=== PATIENT | female | born 1970 | race Caucasian/White ===

== ENCOUNTER 2018-08-03 23:00 | Emergency (ER) | payer OTHER ==
[2018-08-03 23:05] VITALS: BMI 35.9
--- NOTE | 2018-08-03 23:23 | PDOC ---
Attending Attestation - HPI HPI: 08/03/18 23:27 The patient is a 48 year old female with no past medical history who presents to the emergency department for evaluation of left ankle pain s/p mechanical fall. The patient reports moderate left ankle pain after tripping and falling while going down stairs in her home in the dark. Denies LOC or head strike. She states she heard a crack and ripping which prompted her to visit the ED for further evaluation. Denies chest pain, shortness of breath, headache, and dizziness. - Physicial Exam PE: I agree with the residents physical exam findings. - Medical Decision Making Documentation prepared by Rasta Velasquez, acting as certified medical assistant for Kika Jose DO. <Rasta Velasquez - Last Filed: 08/03/18 23:28> - Resident Resident Name: Osvaldo Leigh - ED Attending Attestation I have performed the following: I have examined & evaluated the patient, The case was reviewed & discussed with the resident, I agree w/resident's findings & plan - Medical Decision Making 08/03/18 23:57 48-year-old female with left lateral ankle pain after a fall X-rays show no obvious fracture Due to patient's inability to bear full weight she will be discharged with crutches and Aircast with outpatient orthopedic follow-up Patient neurovascularly intact <Kika Jose - Last Filed: 08/03/18 23:58>
--- NOTE | 2018-08-03 23:26 | PDOC ---
History of Present Illness - General Chief Complaint: Injury Stated Complaint: L ANKLE SPRAIN Time Seen by Provider: 08/03/18 23:20 - History of Present Illness Initial Comments: 08/03/18 23:26 Ms. Cross is a 48 yo female w/ no significant pmh who presents for evaluation of ankle pain. Patient reports she was walking earlier tonight when she slipped and twisted her L foot, hurting her ankle. She denies hitting her head or any LOC upon falling down and reports she was able to catch herself during the event. Was not able to walk afterwards. Denies other complaints at this time. The patient denies chest pain, shortness of breath, headache and dizziness. Denies fever, chills, nausea, vomit, diarrhea and constipation. Denies dysuria, frequency, urgency and hematuria. Past History - Past Medical History Allergies/Adverse Reactions: Allergies Allergy/AdvReac Type Severity Reaction Status Date / Time No Known Allergies Allergy Verified 08/03/18 23:05 Home Medications: Ambulatory Orders NK [No Known Home Medication] 10/29/14 COPD: No - Suicide/Smoking/Psychosocial Hx Smoking History: Never smoked Have you smoked in the past 12 months: No Number of Cigarettes Smoked Daily: 1 Information on smoking cessation initiated: No 'Breaking Loose' booklet given: 10/29/14 Hx Alcohol Use: No Drug/Substance Use Hx: No Substance Use Type: None Review of Systems - Review of Systems Able to Perform ROS?: Yes Comments:: 08/03/18 23:28 GENERAL/CONSTITUTIONAL: No fever or chills. No weakness. HEAD, EYES, EARS, NOSE AND THROAT: No change in vision. No ear pain or discharge. No sore throat. CARDIOVASCULAR: No chest pain or shortness of breath RESPIRATORY: No cough, wheezing, or hemoptysis. GASTROINTESTINAL: No nausea, vomiting, diarrhea or constipation. GENITOURINARY: No dysuria, frequency, or change in urination. MUSCULOSKELETAL: +Left ankle pain s/p injury as described. SKIN: No rash NEUROLOGIC: No headache, vertigo, loss of consciousness, or change in strength/ sensation. ENDOCRINE: No increased thirst. No abnormal weight change HEMATOLOGIC/LYMPHATIC: No anemia, easy bleeding, or history of blood clots. ALLERGIC/IMMUNOLOGIC: No hives or skin allergy. *Physical Exam - Vital Signs Last Vital Signs Temp Pulse Resp BP Pulse Ox 98.0 F 80 16 130/48 L 100 08/03/18 23:03 08/03/18 23:03 08/03/18 23:03 08/03/18 23:03 08/03/18 23:03 - Physical Exam Comments: 08/03/18 23:28 GENERAL: Awake, alert, and fully oriented, in no acute distress HEAD: No signs of trauma, normocephalic, atraumatic EYES: PERRLA, EOMI, sclera anicteric, conjunctiva clear ENT: Auricles normal inspection, hearing grossly normal, nares patent, oropharynx clear without exudates. Moist mucosa NECK: Normal ROM, supple, no lymphadenopathy, JVD, or masses LUNGS: No distress, speaks full sentences, clear to auscultation bilaterally HEART: Regular rate and rhythm, normal S1 and S2, no murmurs, rubs or gallops, peripheral pulses normal and equal bilaterally. ABDOMEN: Soft, nontender, normoactive bowel sounds. No guarding, no rebound. No masses EXTREMITIES: +Swollen left ankle, TTP on L posterior lateral malleolus. Neurovascularly intact. Normal inspection, Normal range of motion, no edema. No clubbing or cyanosis. NEUROLOGICAL: Cranial nerves II through XII grossly intact. Normal speech, normal gait, no focal sensorimotor deficits SKIN: Warm, Dry, normal turgor, no rashes or lesions noted. Moderate Sedation - Procedure Monitoring Vital Signs: Procedure Monitoring Vital Signs Temperature 98.0 F 08/03/18 23:03 Pulse Rate 80 08/03/18 23:03 Respiratory Rate 16 08/03/18 23:03 Blood Pressure 130/48 L 08/03/18 23:03 O2 Sat by Pulse Oximetry (%) 100 08/03/18 23:03 Medical Decision Making - Medical Decision Making 08/03/18 23:33 Ms. Cross is a 48 yo female w/ no significant pmh who presents for evaluation of L ankle pain. Patient unable to walk following injury with positive inferior lateral malleolus tenderness; [place] ankle rules unable to r/o fracture. Patient sent for XR evaluation. 08/03/18 23:55 XR negative for acute injury. Patient offered pain control and refused. Patient placed in splint and given crutches - proper use demonstrated and performed by patient. Orthopedic follow-up information given. Patient will be discharged for further outpatient evaluation. No concern for acute process at this time. *DC/Admit/Observation/Transfer Diagnosis at time of Disposition: Left ankle sprain Qualifiers: Encounter type: initial encounter Involved ligament of ankle: unspecified ligament Qualified Code(s): S93.402A - Sprain of unspecified ligament of left ankle, initial encounter - Discharge Dispostion Disposition: HOME - Referrals Referrals: Per Davis MD [Staff Physician] - - Patient Instructions Printed Discharge Instructions: DI for Ankle Sprain Additional Instructions: You were evaluated today in the ER for your ankle pain. We performed an Xray which was negative for any fracture. You were given a splint and crutches for ambulation. We also provided you with orthopedic information you may use for follow-up as needed. You may take over the counter motrin or tylenol per package instructions for pain control. Return to ER if any fever, chills, increase in pain, or other concerning symptoms. - Post Discharge Activity
[2018-08-04] MEDS ORDERED: ACETAMINOPHEN 500 MG TABLET (FP) PO ONE (00:20)
[2018-08-04] MEDS ORDERED: ACETAMINOPHEN 325 MG TABLET (FP) ONE (00:24)
[2018-08-04 00:29] VITALS: BP 126/50; PULSE 72; TEMP 97.8
== END 2018-08-04 00:31 | disposition home or self-care (01) ==
LOC: JER 23:00
PROC: 2W3RX1Z Immobilization of Left Lower Leg using Splint (ICD-10-PCS; principal; 2018-08-03)
DX: S93.402A Sprain of unspecified ligament of left ankle, initial encounter (principal); W01.0XXA Fall on same level from slipping, tripping and stumbling without subsequent striking against object, initial encounter; Y93.89 Activity, other specified; Y92.89 Other specified places as the place of occurrence of the external cause; Y99.8 Other external cause status
CPT/HCPCS: 73610-TC-LT-FY; 73630-TC-LT; 99282-25

== ENCOUNTER 2022-03-15 10:51 | Emergency (ER) | payer OTHER ==
[2022-03-15 11:09] VITALS: BP 138/53; PULSE 81; RESP 18; TEMP 98; BMI 39.6
== END 2022-03-15 13:29 | disposition home or self-care (01) ==
LOC: JERFT 10:51
DX: R09.89 Other specified symptoms and signs involving the circulatory and respiratory systems (principal)
CPT/HCPCS: 70360-TC-FY; 99283-25